=== PATIENT | male | born 1945 | race Hispanic/Latino ===

== ENCOUNTER → 2024-11-16 | Day surgery (SDC) | payer MEDICARE ==
[2024-11-09 12:24] LABS: BASOPHILS % 0.2 % (0.0-1.0); EOSINOPHILS % 4.3 % (0.0-6.0); LYMPHOCYTES % 19.7 % (18.0-39.1); MONOCYTES % 11.0 % (4.4-11.3); NEUTROPHILS % 64.1 % (38.7-80.0); RED CELL DISTRIBUTION WIDTH 14.9 % (11.7-14.4)
[2024-11-09 12:49] LABS: EST GLOMERULAR FILTRATION RATE 78.0 ML/MIN (>=60)
[~2024-11-16] MED LIST: AMLODIPINE BESY10 MG PO; ASPIRIN81 MG PO; CLOPIDOGREL75 MG PO; GLIMEPIRIDE2 MG PO; ISOSORBIDE MONO30 MG PO; KETOROLAC TROMET5 ML OD; LIDOCAINE HCL 2% LOCAL INJ 5 ML SDV VIAL INJ ONE; LIPITOR20 MG PO; LISINOPRIL5 MG PO; METOPROLOL SUCC25 MG PO; MOXIFLOXACIN3 ML OD; PREDNISOLONE ACE5 M1 OD; PROPOFOL IV EMULSION 10 MG/ML 20 ML VIAL ONE; VITAMIN B122500 MCG PO
[2024-11-16] MEDS: TETRACAINE HCL 0.5% OPTH SOLN 4 ML BTL ONE (10:22)
[2024-11-16] MEDS: LACTATED RINGER'S 1,000 ML ONE (10:23)
[2024-11-16] MEDS: CYCLOPENTOLATE HCL 2% OPTH SOLN 2 ML BTL OP ONE (10:23)
[2024-11-16] MEDS: GATIFLOXACIN(OPTH) 5 ML LIQD ONE (10:24)
[2024-11-16] MEDS: PHENYLEPHRINE HCL 2 ML DROPS ONE (10:24)
[2024-11-16] MEDS: DEXTROSE 5% 250ML 250 ML IV ONE (10:31)
[2024-11-16 13:00] VITALS: BP 130/75; PULSE 60; RESP 16; TEMP 97.6; O2SAT 95
== END | disposition home or self-care (01) ==
LOC: OR 08:29
PROVIDERS: ATTEND Ophthalmology
DX: H25.11 Age-related nuclear cataract, right eye (principal); I10 Essential (primary) hypertension; E78.5 Hyperlipidemia, unspecified; E11.9 Type 2 diabetes mellitus without complications; Z79.84 Long term (current) use of oral hypoglycemic drugs; I73.9 Peripheral vascular disease, unspecified; I25.10 Atherosclerotic heart disease of native coronary artery without angina pectoris; Z01.810 Encounter for preprocedural cardiovascular examination; Z01.812 Encounter for preprocedural laboratory examination
CPT/HCPCS: 36415 ×2; 66984; 80048; 82948; 85025; 93005; J2003; J2704; J7121; V2632